=== PATIENT | female | born 2000 ===

== ENCOUNTER 2021-05-29 09:56 | Inpatient (IN) | payer SELFPAY ==
[2021-05-29] MEDS ORDERED: Butorphanol 1 MG/ML SDV IVPUSH PRN (14:54)
[2021-05-29] MEDS ORDERED: Sodium Chloride 0.9% 2.5 ML Syringe FLUSH PRN (14:54)
[2021-05-29] MEDS ORDERED: Sodium Chloride 0.9% 10 ML SDV IV PRN (14:54)
[2021-05-29] MEDS ORDERED: Carboprost Tromethamine 250 MCG/1 ML Amp IM PRN (14:54)
[2021-05-29] MEDS ORDERED: Water For Irrigation,Sterile 1,000 ML Container IRR PRN (14:54)
[2021-05-29] MEDS ORDERED: Lidocaine 1% 50 ML MDV INJECT PRN (14:54)
[2021-05-29] MEDS ORDERED: Methylergonovine 0.2 MG/1 ML Amp IM PRN (14:54)
[2021-05-29] MEDS ORDERED: Tranexamic Acid 1,000 MG in Sodium Chloride 0.9% 100 ML IV PRN (14:54)
[2021-05-29] MEDS ORDERED: Sodium Chloride 0.9% 10 ML Syringe FLUSH PRN (14:54)
[2021-05-29] MEDS ORDERED: Nalbuphine 10 MG/1 ML Vial IVPUSH PRN (14:54)
[2021-05-29] MEDS ORDERED: Misoprostol 200 MCG Tab PO PRN (14:54)
[2021-05-29] MEDS ORDERED: Oxytocin/0.9 % Sodium Chloride 30 UNIT/500 ML BAG IV SCH (15:00)
[2021-05-29] MEDS: Lactated Ringers 1,000 ML IV SCH ×2 (20:10→21:15)
[2021-05-29] MEDS ORDERED: Ropivacaine HCl/PF 200 ML ONE (20:28)
[2021-05-29] MEDS ORDERED: Bupivacaine 0.25% 10 ML SDV ONE (20:28)
[2021-05-29] MEDS: Oxytocin/0.9 % Sodium Chloride 30 UNIT/500 ML BAG IV SCH ×4 (21:15→23:45)
--- NOTE | 2021-05-29 21:26 | PCM.PREANE ---
Preanesthetic Assessment - Anesthesia/Transfusion/Family Hx Anesthesia History: Prior Anesthesia Without Reaction - Review of Systems General: No Symptoms Pulmonary: No Symptoms Cardiovascular: No Symptoms Gastrointestinal: No Symptoms Neurological: No Symptoms Other: Reports: None - Physical Assessment Height: 5 ft Weight: 67.132 kg ASA Class: 2 Mental Status: Alert & Oriented x3 Airway Class: Mallampati = 2 Dentition: Reports: Normal Dentition Thyro-Mental Finger Breadths: 2 Mouth Opening Finger Breadths: 3 ROM/Head Extension: Full Lungs: Clear to Auscultation, Normal Respiratory Effort Cardiovascular: Regular Rate, Regular Rhythm - Lab Values: Laboratory Last Values WBC 13.86 K/uL (4.0-11.0) H 05/29/21 15:20 RBC 4.46 M/uL (4.30-5.90) 05/29/21 15:20 Hgb 13.7 g/dL (12.0-16.0) 05/29/21 15:20 Hct 39.3 % (36.0-46.0) 05/29/21 15:20 MCV 88.1 fL (80.0-98.0) 05/29/21 15:20 MCH 30.7 pg (27.0-32.0) 05/29/21 15:20 MCHC 34.9 g/dL (31.0-37.0) 05/29/21 15:20 RDW Std Deviation 45.9 fl (28.0-62.0) 05/29/21 15:20 RDW Coeff of Kofi 14 % (11.0-15.0) 05/29/21 15:20 Plt Count 186 K/uL (150-400) 05/29/21 15:20 MPV 11.30 fL (7.40-12.00) 05/29/21 15:20 Nucleated RBC % 0.0 /100WBC 05/29/21 15:20 Nucleated RBCs # 0 K/uL 05/29/21 15:20 Membrane Rupture NEGATIVE 05/29/21 10:00 SARS-CoV-2 RNA (MARIANGEL) POSITIVE (NEGATIVE) H 05/29/21 15:23 Blood Type O POSITIVE 05/29/21 15:20 Antibody Screen NEGATIVE 05/29/21 15:20 - Allergies Allergies/Adverse Reactions: Allergies Allergy/AdvReac Type Severity Reaction Status Date / Time No Known Allergies Allergy Verified 05/29/21 14:52 - Acknowledgements Anesthesia Type Planned: Epidural Pt an Appropriate Candidate for the Planned Anesthesia: Yes Alternatives and Risks of Anesthesia Discussed w Pt/Guardian: Yes Pt/Guardian Understands and Agrees with Anesthesia Plan: Yes PreAnesthesia Questionnaire - HOME MEDS Home Medications: Home Meds Pnv No.95/Ferrous Fum/Folic AC [ Vitamin Tablet] 1 tab PO DAILY 05/29/21 [History] - CURRENT (IN HOUSE) MEDS Current Meds: Current Medications Butorphanol Tartrate (Butorphanol 1 Mg/Ml Sdv) 1 mg IVPUSH Q1H PRN PRN Reason: Pain (severe 7-10) Carboprost Tromethamine (Carboprost Tromethamine 250 Mcg/1 Ml Amp) 250 mcg IM ASDIRECTED PRN PRN Reason: Post Hemorrhage Oxytocin/Sodium Chloride (Oxytocin 30 Unit/500 Ml-Ns) 30 unit in 500 mls @ 999 mls/hr IV TITRATE [facility] Tranexamic Acid 1,000 mg/ (Sodium Chloride) 110 mls @ 660 mls/hr IV ONETIME PRN PRN Reason: Bleeding Lactated Ringer's (Ringers, Lactated) 1,000 mls @ 150 mls/hr IV ASDIRECTED [facility] Lidocaine HCl (Lidocaine 1% 50 Ml Mdv) 50 ml INJECT ONETIME PRN PRN Reason: Laceration repair Methylergonovine Maleate (Methylergonovine 0.2 Mg/1 Ml Amp) 0.2 mg IM ASDIRECTED PRN PRN Reason: Post Hemorrhage Misoprostol (Misoprostol 200 Mcg Tab) 200 mcg PO ONETIME PRN PRN Reason: Post Hemorrhage Nalbuphine HCl (Nalbuphine 10 Mg/1 Ml Vial) 10 mg IVPUSH Q1H PRN PRN Reason: Pain (severe 7-10) Sodium Chloride (Sodium Chloride 0.9% 10 Ml Syringe) 10 ml FLUSH ASDIRECTED PRN PRN Reason: Keep Vein Open Sodium Chloride (Sodium Chloride 0.9% 2.5 Ml Syringe) 2.5 ml FLUSH ASDIRECTED PRN PRN Reason: Keep Vein Open Sodium Chloride (Sodium Chloride 0.9% 10 Ml Sdv) 10 ml IV ASDIRECTED PRN PRN Reason: IV Use Sterile Water (Water For Irrigation,Sterile 1,000 Ml Container) 1,000 ml IRR ASDIRECTED PRN PRN Reason: delivery Discontinued Medications Bupivacaine HCl (Bupivacaine 0.25% 10 Ml Sdv) Confirm Administered Dose 10 ml .ROUTE .[facility]-MED ONE Stop: 05/29/21 20:29 Ropivacaine (Naropin 0.2%) Confirm Administered Dose 200 mls @ as directed .ROUTE .[employer] ONE Stop: 05/29/21 20:29
--- NOTE | 2021-05-29 21:32 | PCM.SN.2 ---
Time Documentation - Pre-Procedure Checklist Attending Provider Aware: Yes Chart Reviewed: Yes Consent Signed: Yes Labs Reviewed: Yes VS/FHR Reviewed: Yes Patient Identification Confirmation Method: Reports: ID Band Visual, Verbal Patient Pt an Appropriate Candidate for the Planned Anesthesia: Yes Alternatives and Risks of Anesthesia Discussed w Pt/Guardian: Yes - Procedure Procedure Start Date: 05/29/21 Procedure Start Time: 20:[address]: Reports: Blood Pressure, Heart Rate, SPO2 Functional IV: Yes Safety Measures: Reports: Patient Identified, Procedure Verified, Site Verified, Procedure Time Out Patient Position: Reports: Sitting Prep: Reports: Betadine x3, Sterile Drape Local Anesthetic: Reports: Intradermal Wheal w Lidocaine 1% Regional Placement Level: Reports: L4-5 Needle: Reports: 17 g Touhy Approach: Reports: Midline Technique: Reports: SHAHEEN Plastic Syringe, Other (SHAHEEN to saline) Parasthesia: Reports: None Fluid Obtained: Reports: None Test Dose Time: 20:47 Test Dose Medication: Reports: Lidocaine 1.5% w Epinephrine 1:200,000 Test Dose Response: Reports: Negative Loading Dose Time: 20:52 Loading Dose Medication: Bupivacaine 0.25% PF 10 ml in 2 divided doses Loading Dose Patient Position: Semi-fowlers Continuous Infusion Start Time: 20:57 Continuous Infusion Medication: Ropivacaine 0.2% Continuous Infusion Rate: 12 ml/hr Continuous Infusion PCS Bolus Option: 4 ml Q 15 min Patient Position Post Placement: Reports: Semi-fowlers/MACRINA Post-procedure Pain Level: 0 Level Achieved: T-10 VS and FHR Monitored in Unit Post Placement: Yes Procedure End Date: 05/29/21 Procedure End Time: 21:31 Procedure Comment: Pt. tolerated procedure well
--- NOTE | 2021-05-29 21:45 | PCM.POSTAN ---
POST ANESTHESIA ASSESSMENT - MENTAL STATUS Mental Status: Alert, Oriented - RESPIRATORY Respiratory Status: Respiratory Rate WNL, Airway Patent, O2 Saturation Stable - CARDIOVASCULAR CV Status: Pulse Rate WNL, Blood Pressure Stable - GASTROINTESTINAL GI Status: No Symptoms - POST OP HYDRATION Hydration Status: Adequate & Stable
[2021-05-30] MEDS: Oxytocin/0.9 % Sodium Chloride 30 UNIT/500 ML BAG IV SCH ×3 (01:45→03:15)
[2021-05-30] MEDS: Lactated Ringers 1,000 ML IV SCH (03:31)
[2021-05-30] MEDS ORDERED: oxyCODONE 5 MG Tab PO PRN (06:16)
[2021-05-30] MEDS ORDERED: Benzocaine/Menthol 20%-0.5% Spray 78 GM Cannister TOP PRN (06:16)
[2021-05-30] MEDS ORDERED: Lanolin 100% Cream 7 GM Tube TOP PRN (06:16)
[2021-05-30] MEDS ORDERED: Acetaminophen 500 MG Tab PO PRN (06:16)
[2021-05-30] MEDS ORDERED: Ibuprofen 400 MG Tab PO PRN (06:16)
[2021-05-30] MEDS ORDERED: Bisacodyl 10 MG Supp RECTAL PRN (06:16)
--- NOTE | 2021-05-30 06:22 | PCM.DEL ---
L & D Note - General Info Date of Service: 05/30/21 - Delivery Note Labor: Augmented by ARM, Augmented by Oxytocin Delivery Outcome: Livebirth Infant Delivery Method: Spontaneous Vaginal Delivery-Single Presentation: Left Occiput Anterior (JESSE) Nuchal Cord: Present (Nuchal X 2) Anesthesia Type: Epidural Amniotic Fluid Description: Meconium Stained Episiotomy Type: None Laceration: 1st Degree Suture type: Other (monocryl) Suture size: 2-0 Placenta: Intact Cord: 3 Vessels Estimated Blood Loss: 600 Resuscitation Needed: No Henderson: Bulb Syringe Score 1 min: 8 Score 5 min: 9 Delivery Comments (Free Text/Narrative):: Live male delivered at 528am , 8/9 weight 3260g - General Info Date of Service: 05/30/21 - Patient Data Weight - Most Recent: 67.132 kg Lab Results Last 24 Hours: Laboratory Results - last 24 hr 05/29/21 05/29/21 05/29/21 Range/Units 10:00 15:20 15:20 WBC 13.86 H (4.0-11.0) K/uL RBC 4.46 (4.30-5.90) M/uL Hgb 13.7 (12.0-16.0) g/dL Hct 39.3 (36.0-46.0) % MCV 88.1 (80.0-98.0) fL MCH 30.7 (27.0-32.0) pg MCHC 34.9 (31.0-37.0) g/dL RDW Std Deviation 45.9 (28.0-62.0) fl RDW Coeff of Kofi 14 (11.0-15.0) % Plt Count 186 (150-400) K/uL MPV 11.30 (7.40-12.00) fL Nucleated RBC % 0.0 /100WBC Nucleated RBCs # 0 K/uL Membrane Rupture NEGATIVE SARS-CoV-2 RNA (MARIANGEL) (NEGATIVE) Blood Type O POSITIVE Antibody Screen NEGATIVE 05/29/21 Range/Units 15:23 WBC (4.0-11.0) K/uL RBC (4.30-5.90) M/uL Hgb (12.0-16.0) g/dL Hct (36.0-46.0) % MCV (80.0-98.0) fL MCH (27.0-32.0) pg MCHC (31.0-37.0) g/dL RDW Std Deviation (28.0-62.0) fl RDW Coeff of Kofi (11.0-15.0) % Plt Count (150-400) K/uL MPV (7.40-12.00) fL Nucleated RBC % /100WBC Nucleated RBCs # K/uL Membrane Rupture SARS-CoV-2 RNA (MARIANGEL) POSITIVE H (NEGATIVE) Blood Type Antibody Screen Med Orders - Current: Current Medications Butorphanol Tartrate (Butorphanol 1 Mg/Ml Sdv) 1 mg IVPUSH Q1H PRN PRN Reason: Pain (severe 7-10) Carboprost Tromethamine (Carboprost Tromethamine 250 Mcg/1 Ml Amp) 250 mcg IM ASDIRECTED PRN PRN Reason: Post Hemorrhage Oxytocin/Sodium Chloride (Oxytocin 30 Unit/500 Ml-Ns) 30 unit in 500 mls @ 999 mls/hr IV TITRATE [facility] Tranexamic Acid 1,000 mg/ (Sodium Chloride) 110 mls @ 660 mls/hr IV ONETIME PRN PRN Reason: Bleeding Lactated Ringer's (Ringers, Lactated) 1,000 mls @ 150 mls/hr IV ASDIRECTED [facility] Last Admin: 05/30/21 03:31 Dose: 150 mls/hr Documented by: Oxytocin/Sodium Chloride (Oxytocin 30 Unit/500 Ml-Ns) 30 unit in 500 mls @ 2 mls/hr IV TITRATE KAMI; Protocol Last Admin: 05/30/21 03:15 Dose: 14 munits/min, 14 mls/hr Documented by: Lidocaine HCl (Lidocaine 1% 50 Ml Mdv) 50 ml INJECT ONETIME PRN PRN Reason: Laceration repair Methylergonovine Maleate (Methylergonovine 0.2 Mg/1 Ml Amp) 0.2 mg IM ASDIRECTED PRN PRN Reason: Post Hemorrhage Misoprostol (Misoprostol 200 Mcg Tab) 200 mcg PO ONETIME PRN PRN Reason: Post Hemorrhage Nalbuphine HCl (Nalbuphine 10 Mg/1 Ml Vial) 10 mg IVPUSH Q1H PRN PRN Reason: Pain (severe 7-10) Sodium Chloride (Sodium Chloride 0.9% 10 Ml Syringe) 10 ml FLUSH ASDIRECTED PRN PRN Reason: Keep Vein Open Sodium Chloride (Sodium Chloride 0.9% 2.5 Ml Syringe) 2.5 ml FLUSH ASDIRECTED PRN PRN Reason: Keep Vein Open Sodium Chloride (Sodium Chloride 0.9% 10 Ml Sdv) 10 ml IV ASDIRECTED PRN PRN Reason: IV Use Sterile Water (Water For Irrigation,Sterile 1,000 Ml Container) 1,000 ml IRR ASDIRECTED PRN PRN Reason: delivery Discontinued Medications Bupivacaine HCl (Bupivacaine 0.25% 10 Ml Sdv) Confirm Administered Dose 10 ml .ROUTE .STK-MED ONE Stop: 05/29/21 20:29 Ropivacaine (Naropin 0.2%) Confirm Administered Dose 200 mls @ as directed .ROUTE .STK-MED ONE Stop: 05/29/21 20:29 Miscellaneous Medication (Phenylephrine Hcl In 0.9% Nacl 1 Mg/10 Ml Syringe) 0 mg IVPUSH Q1M [facility]I Stop: 05/30/21 04:47 - Problem List & Annotations (1) Vaginal delivery SNOMED Code(s): 677759759 Code(s): O80 - ENCOUNTER FOR FULL-TERM UNCOMPLICATED DELIVERY Status: Acute Current Visit: Yes - Problem List Review Problem List Initiated/Reviewed/Updated: Yes - My Orders Last 24 Hours: My Active Orders 05/29/21 14:54 Butorphanol [Stadol] 1 mg IVPUSH Q1H PRN Carboprost Tromethamine [Hemabate DS] 250 mcg IM ASDIRECTED PRN Lidocaine 1% [Xylocaine 1%] 50 ml INJECT ONETIME PRN Methylergonovine [Methergine] 0.2 mg IM ASDIRECTED PRN Nalbuphine [Nubain] 10 mg IVPUSH Q1H PRN Sodium Chloride 0.9% [Normal Saline] 10 ml IV ASDIRECTED PRN Sodium Chloride 0.9% [Saline Flush] 10 ml FLUSH ASDIRECTED PRN Sodium Chloride 0.9% [Saline Flush] 2.5 ml FLUSH ASDIRECTED PRN Tranexamic Acid [Cyklokapron] 1,000 mg Sodium Chloride 0.9% [Normal Saline] 100 ml IV ONETIME Water For Irrigation,Sterile [Sterile Water for Irrigation] 1,000 ml IRR ASDIRECTED PRN miSOPROStoL [Cytotec] 200 mcg PO ONETIME PRN 05/29/21 14:55 Patient Status [ADT] Routine May Shower [RC] ASDIRECTED Notify Provider [RC] PRN Up ad Rose Mary [RC] ASDIRECTED Vital Signs [RC] PER UNIT ROUTINE Peripheral IV Insertion Adult [OM.PC] Routine 05/29/21 15:00 Lactated Ringers [Ringers, Lactated] 1,000 ml IV ASDIRECTED Oxytocin/0.9 % Sodium Chloride [Oxytocin 30 Unit/500 ML-NS] 30 unit in 500 ml IV TITRATE 05/29/21 15:20 RPR (SYPHILIS SERO) W/ RFLX [REF] Routine 05/29/21 Dinner Nothing Per Oral Diet [DIET] 05/29/21 21:00 Oxytocin/0.9 % Sodium Chloride [Oxytocin 30 Unit/500 ML-NS] 30 unit in 500 ml IV TITRATE 05/30/21 06:16 Patient Status [ADT] Routine May Shower [RC] ASDIRECTED Up ad Rose Mary [RC] ASDIRECTED Vital Signs [RC] PER UNIT ROUTINE BLOOD GAS VENOUS UMBILICAL [BG] Stat Acetaminophen [Tylenol Extra Strength] 1,000 mg PO Q4H PRN Acetaminophen [Tylenol Extra Strength] 500 mg PO Q4H PRN Benzocaine/Menthol [Dermoplast Pain Relief 20%-0.5% [place]] 78 gm TOP ASDIRECTED PRN Docusate Sodium [Colace] 100 mg PO Q12H PRN Ibuprofen [Motrin] 400 mg PO Q4H PRN Ibuprofen [Motrin] 800 mg PO Q6H PRN Lanolin [Lansinoh HPA] See Dose Instructions TOP ASDIRECTED PRN bisacodyL [Dulcolax] 10 mg RECTAL ONETIME PRN oxyCODONE 5 mg PO Q2H PRN witch Annamaria [Tucks] 1 pad TOP ASDIRECTED PRN Assess Lochia [WOMSER] Per Unit Routine Assess Uterine Involution [WOMSER] Per Unit Routine Peripheral IV Discontinue [OM.PC] Routine Resuscitation Status Routine 05/31/21 05:11 HEMOGLOBIN/HEMATOCRIT,HH [HEME] Timed - Assessment Assessment:: 21yo P1 s/p , PPD 1 , Covid positive asymptomatic O positive , Rubella Immune - Plan Plan:: Routine care
[2021-05-30] MEDS: Ibuprofen 800 MG Tab PO PRN (07:24)
[2021-05-30] MEDS: Witch Hazel Medicated Pads 40/Jar TOP PRN (07:24)
[2021-05-30] MEDS: Docusate Sodium 100 MG Cap PO PRN ×2 (07:56→19:54)
--- NOTE | 2021-05-30 09:48 | PCM48HPAN ---
Post Anesthesia Note - EVALUATION WITHIN 48HRS OF ANESTHETIC Vital Signs in Normal Range: Yes Patient Participated in Evaluation: Yes Respiratory Function Stable: Yes Airway Patent: Yes Cardiovascular Function Stable: Yes Hydration Status Stable: Yes Pain Control Satisfactory: Yes Nausea and Vomiting Control Satisfactory: Yes Mental Status Recovered: Yes
--- NOTE | 2021-05-30 10:29 | OR ---
SURGEON: DONALD LYONS DATE OF PROCEDURE: 05/30/2021 PREOPERATIVE DIAGNOSES: 21-year-old, G1, P0, at 39 weeks 0 days, admitted in early labor, COVID positive, asymptomatic POSTOPERATIVE DIAGNOSES: 21-year-old, G1, P0, at 39 weeks 0 days, admitted in early labor, COVID positive, asymptomatic. PROCEDURE: Normal spontaneous vaginal delivery. ESTIMATED BLOOD LOSS: 600. IV FLUIDS: Pitocin running. ANESTHESIA: Epidural. NOTES AND FINDINGS: Live male delivered at 5:28 a.m. score is 8 and 9. Weight is 3260 g. BRIEF HISTORY ABOUT THE PATIENT: 21-year-old, G1, P0, at 39 weeks 0 days, has low risk who came in complaining of contractions. She was noted to change from 3 to 4 cm, so she was admitted. COVID testing was done which was positive. She was asymptomatic. Standard precautions were taken. The patient was observed and she was ruptured. The patient was started on Pitocin. She had a normal labor course. She became fully dilated. DESCRIPTION OF PROCEDURE: With the patient fully dilated, she was encouraged to push. With good pushing effort, she delivered the head. There was still nuchal cord around the body, which was reduced after delivery. After delivery of the head, was the anterior and posterior shoulder, then the body. Infant was placed on maternal abdomen. Delayed cord clamping was observed. Cord blood gases were obtained. The placenta was delivered via controlled cord traction. Perineum was inspected. First-degree laceration was noted, which was repaired with 2-0 Monocryl. Bimanual massage was done. Bleeding was well controlled. The patient tolerated the procedure well. All instrument and pad counts were correct x2. ELMER / SURENDRA /[id number] KENDY
[2021-05-30] MEDS: Acetaminophen 500 MG Tab PO PRN (19:54)
[2021-05-31] MEDS: Ibuprofen 800 MG Tab PO PRN ×2 (05:29→15:42)
[2021-05-31] MEDS: Witch Hazel Medicated Pads 40/Jar TOP PRN (06:18)
[2021-05-31] MEDS: Docusate Sodium 100 MG Cap PO PRN (08:14)
--- NOTE | 2021-05-31 08:55 | PCM.PNPP ---
- General Info Date of Service: 05/31/21 Functional Status: Reports: Pain Controlled, Tolerating Diet, Ambulating, Urinating - Review of Systems General: Reports: No Symptoms HEENT: Reports: No Symptoms Pulmonary: Reports: No Symptoms Cardiovascular: Reports: No Symptoms Gastrointestinal: Reports: No Symptoms Genitourinary: Reports: No Symptoms Musculoskeletal: Reports: No Symptoms Skin: Reports: No Symptoms Neurological: Reports: No Symptoms Psychiatric: Reports: No Symptoms - General Info Date of Service: 05/31/21 - Patient Data Vital Signs - Most Recent: Last Vital Signs Temp 36.6 C 05/31/21 04:30 Pulse 80 05/31/21 04:30 Resp 16 05/31/21 04:30 BP 105/67 05/31/21 04:30 Pulse Ox 98 05/31/21 04:30 Weight - Most Recent: 67.132 kg Lab Results - Last 24 Hours: Laboratory Results - last 24 hr 05/31/21 Range/Units 04:55 Hgb 11.5 L (12.0-16.0) g/dL Hct 33.9 L (36.0-46.0) % Med Orders - Current: Current Medications Acetaminophen (Acetaminophen 500 Mg Tab) 500 mg PO Q4H PRN PRN Reason: Pain (mild 1-3) Acetaminophen (Acetaminophen 500 Mg Tab) 1,000 mg PO Q4H PRN PRN Reason: Pain (mild 1-3) Last Admin: 05/30/21 19:54 Dose: 1,000 mg Documented by: Benzocaine/Menthol (Benzocaine/Menthol 20%-0.5% [place] 78 Gm Cannister) 78 gm TOP ASDIRECTED PRN PRN Reason: Perineal Comfort Measure Last Admin: 05/30/21 07:23 Dose: 78 gm Documented by: Bisacodyl (Bisacodyl 10 Mg Supp) 10 mg RECTAL ONETIME PRN PRN Reason: Constipation Butorphanol Tartrate (Butorphanol 1 Mg/Ml Sdv) 1 mg IVPUSH Q1H PRN PRN Reason: Pain (severe 7-10) Carboprost Tromethamine (Carboprost Tromethamine 250 Mcg/1 Ml Amp) 250 mcg IM ASDIRECTED PRN PRN Reason: Post Hemorrhage Docusate Sodium (Docusate Sodium 100 Mg Cap) 100 mg PO Q12H PRN PRN Reason: Constipation Last Admin: 05/31/21 08:14 Dose: 100 mg Documented by: Emollient Ointment (Lanolin 100% Cream 7 Gm Tube) 0 gm TOP ASDIRECTED PRN PRN Reason: Sore Nipples Last Admin: 05/30/21 07:56 Dose: 1 tube Documented by: Oxytocin/Sodium Chloride (Oxytocin 30 Unit/500 Ml-Ns) 30 unit in 500 mls @ 999 mls/hr IV TITRATE [facility] Tranexamic Acid 1,000 mg/ (Sodium Chloride) 110 mls @ 660 mls/hr IV ONETIME PRN PRN Reason: Bleeding Lactated Ringer's (Ringers, Lactated) 1,000 mls @ 150 mls/hr IV ASDIRECTED KAMI Last Infusion: 05/30/21 07:00 Dose: Infused Documented by: Oxytocin/Sodium Chloride (Oxytocin 30 Unit/500 Ml-Ns) 30 unit in 500 mls @ 2 mls/hr IV TITRATE KAMI; Protocol Last Infusion: 05/30/21 06:30 Dose: Infused Documented by: Ibuprofen (Ibuprofen 400 Mg Tab) 400 mg PO Q4H PRN PRN Reason: Pain (mild 1-3) Ibuprofen (Ibuprofen 800 Mg Tab) 800 mg PO Q6H PRN PRN Reason: Cramping Last Admin: 05/31/21 05:29 Dose: 800 mg Documented by: Lidocaine HCl (Lidocaine 1% 50 Ml Mdv) 50 ml INJECT ONETIME PRN PRN Reason: Laceration repair Methylergonovine Maleate (Methylergonovine 0.2 Mg/1 Ml Amp) 0.2 mg IM ASDIRECTED PRN PRN Reason: Post Hemorrhage Misoprostol (Misoprostol 200 Mcg Tab) 200 mcg PO ONETIME PRN PRN Reason: Post Hemorrhage Nalbuphine HCl (Nalbuphine 10 Mg/1 Ml Vial) 10 mg IVPUSH Q1H PRN PRN Reason: Pain (severe 7-10) Oxycodone HCl (Oxycodone 5 Mg Tab) 5 mg PO Q2H PRN PRN Reason: Pain (severe 7-10) Sodium Chloride (Sodium Chloride 0.9% 10 Ml Syringe) 10 ml FLUSH ASDIRECTED PRN PRN Reason: Keep Vein Open Sodium Chloride (Sodium Chloride 0.9% 2.5 Ml Syringe) 2.5 ml FLUSH ASDIRECTED PRN PRN Reason: Keep Vein Open Sodium Chloride (Sodium Chloride 0.9% 10 Ml Sdv) 10 ml IV ASDIRECTED PRN PRN Reason: IV Use Sterile Water (Water For Irrigation,Sterile 1,000 Ml Container) 1,000 ml IRR ASDIRECTED PRN PRN Reason: delivery Witch Nataliya (Witch Nataliya Medicated Pads 40/Jar) 1 pad TOP ASDIRECTED PRN PRN Reason: comfort care Last Admin: 05/31/21 06:18 Dose: 1 tub Documented by: Discontinued Medications Bupivacaine HCl (Bupivacaine 0.25% 10 Ml Sdv) Confirm Administered Dose 10 ml .ROUTE .HERMEL [facility]OR[employer] ONE Stop: 05/29/21 20:29 Last Admin: 05/30/21 21:45 Dose: Not Given Documented by: Ropivacaine (Naropin 0.2%) Confirm Administered Dose 200 mls @ as directed .ROUTE .HERMEL [facility]OR[employer] ONE Stop: 05/29/21 20:29 Last Admin: 05/30/21 21:45 Dose: Not Given Documented by: Miscellaneous Medication (Phenylephrine Hcl In 0.9% Nacl 1 Mg/10 Ml Syringe) 0 mg IVPUSH Q1M KAMI Stop: 05/30/21 04:47 Last Admin: 05/30/21 05:00 Dose: Not Given Documented by: - Infant Interaction Support Person: Mother - Recovery Exam Fundal Tone: Firm Fundal Level: 2 Fingerbreadths Below Umbilicus Fundal Placement: Midline Lochia Amount: Small Lochia Color: Rubra/Red Perineum Description: Edematous, Other (see below) Other Perinuem Description: 1st degree laceration Episiotomy/Laceration: Approximated Bladder Status: Voiding Urinary Elimination: Voided - Exam General: Alert HEENT: Pupils Equal Neck: Supple Lungs: Clear to Auscultation Cardiovascular: Regular Rate, Regular Rhythm GI/Abdominal Exam: Normal Bowel Sounds Extremities: Normal Inspection Neurological: No New Focal Deficit Psy/Mental Status: Alert - Problem List & Annotations (1) Vaginal delivery SNOMED Code(s): 220470348 Code(s): O80 - ENCOUNTER FOR FULL-TERM UNCOMPLICATED DELIVERY Status: Acute Current Visit: Yes - Problem List Review Problem List Initiated/Reviewed/Updated: Yes - Assessment Assessment:: 21yo P1 s/p , PPD 1 , Covid positive asymptomatic O positive , Rubella Immune Normal lochia - Plan Plan:: Routine care Discharge home
[2021-05-31] MEDS: Acetaminophen 500 MG Tab PO PRN (09:07)
== END 2021-05-31 19:50 | disposition home or self-care (01) | DRG 805 ==
LOC: MW.OBCHECK 09:56 → MW.OB 09:59 → MW.OBCHECK 14:55 → OBSVTOIN 05-30 05:28 → MW.OB 05-30 08:53
PROVIDERS: ADMIT Obstetrics & Gynecology; ATTEND Obstetrics & Gynecology
PROC: 10E0XZZ Delivery of Products of Conception, External Approach (ICD-10-PCS; principal; 2021-05-30)
PROC: 10907ZC Drainage of Amniotic Fluid, Therapeutic from Products of Conception, Via Natural or Artificial Opening (ICD-10-PCS; 2021-05-30)
PROC: 0HQ9XZZ Repair Perineum Skin, External Approach (ICD-10-PCS; 2021-05-30)
PROC: 3E0R3BZ Introduction of Anesthetic Agent into Spinal Canal, Percutaneous Approach (ICD-10-PCS; 2021-05-30)
PROC: 00HU33Z Insertion of Infusion Device into Spinal Canal, Percutaneous Approach (ICD-10-PCS; 2021-05-30)
DX: O77.0 Labor and delivery complicated by meconium in amniotic fluid (principal); U07.1 COVID-19; Z37.0 Single live birth; O98.52 Other viral diseases complicating childbirth; O69.81X0 Labor and delivery complicated by cord around neck, without compression, not applicable or unspecified; Z3A.39 39 weeks gestation of pregnancy; O70.0 First degree perineal laceration during delivery
CPT/HCPCS: 01967; 36415; 59025; 59409; 82803; 84112; 85014; 85018; 85027; 86592; 86850; 86900; 86901; A9270-GY; J2590; J2795; J3490; J7120; U0002